=== PATIENT | male | born 1960 | race Caucasian/White ===

== ENCOUNTER 2022-12-28 07:30 | Day surgery (SDC) | payer MEDICARE ==
[~2022-12-28 07:30] MED LIST: ALDACTONE25 MG PO; ASPIRIN 81 LOW81 MG PO; ATORVASTATIN CA10 MG PO; BISOPROL FUM5 MG PO; FISH OIL1000 M1 PO; ISOSORB DIN20 MG PO; LASIX 40 MG TAB40 MG PO; LISINOPRIL10 MG PO; METFORMIN HCL1000 MG PO; METOLAZONE2.5 MG PO; OZEMPIC 8 MG/3M1 INJ SC; PROSCAR5 MG PO; PROTONIX40 M2 PO
[2022-12-28 09:44] VITALS: BP 133/70
== END 2022-12-28 10:05 | disposition home or self-care (01) ==
LOC: ENDO 07:30 → ORM 09:45 → ENDO 09:45
PROVIDERS: ATTEND Surgery
PROC: 0DJD8ZZ Inspection of Lower Intestinal Tract, Via Natural or Artificial Opening Endoscopic (ICD-10-PCS; principal; 2022-12-28)
PROC: 0DJ08ZZ Inspection of Upper Intestinal Tract, Via Natural or Artificial Opening Endoscopic (ICD-10-PCS; 2022-12-28)
DX: D64.9 Anemia, unspecified (principal); K64.8 Other hemorrhoids; I25.10 Atherosclerotic heart disease of native coronary artery without angina pectoris; Z95.1 Presence of aortocoronary bypass graft